=== PATIENT | male | born 1950 | race Caucasian/White ===

== ENCOUNTER → 2016-09-06 | Outpatient (CLI) | payer MEDICARE, BC | END | disposition disaster alternative care site (69) | LOC: GAIR 18:45 | DX: I47.2 Ventricular tachycardia (principal); R00.2 Palpitations; R42 Dizziness and giddiness; E11.9 Type 2 diabetes mellitus without complications; I10 Essential (primary) hypertension; Z88.8 Allergy status to other drugs, medicaments and biological substances | CPT/HCPCS: A0422; A0431; A0436 ==